=== PATIENT | female | born 1950 | race Caucasian/White ===

== ENCOUNTER 2020-10-04 14:50 | Outpatient (CLI) | payer MEDICARE, OTHER, SELFPAY ==
--- NOTE | ~2020-10-04 | MM_ITS ---
EXAMINATION: MM screening ana BI w sameera HISTORY: Screening mammogram TECHNIQUE: Craniocaudal and mediolateral oblique 3-D tomosynthesis images were obtained and synthetic 2-D images were generated. CAD analysis was submitted and interpreted. COMPARISON: 04/15/2014 BREAST PARENCHYMAL COMPOSITION: There are scattered areas of fibroglandular density. FINDINGS: A stable mass of the inner right breast is considered benign given the lack of interval deb nge. There is no evidence of suspicious mass, calcification, or architectural distortion to suggest m alignancy in either breast. There has been no suspicious interval change. IMPRESSION: 1. No mammographic evidence of malignancy. 2. Recommend routine screening mammography in one year. BI-RADS Category 2: Benign finding(s). Reviewed, dictated and finalized at location A.
--- NOTE | ~2020-10-04 | DEXA_ITS ---
Bone Density Report Name: Rakel Pavon Age: 70 Sex: Female Ethnicity: White Date of : 1950 Indication: postmenopausal; height loss; hysterectomy; Referring Provider: Stacia Pinto Study: Bone densitometry was performed. Exam Date: October 04, 2020 Accession number: [id number] Bone Density: Region BMD T-score Z-score Classification AP Spine (L1-L4) 0.896 -1.4 0.8 Osteopenia Femoral Neck (Left) 0.797 -0.5 1.3 Normal Total Hip (Left) 0.910 -0.3 1.3 Normal Total Hip Bilateral Avg 0.919 -0.2 1.4 Normal Femoral Neck (Right) 0.848 0.0 1.8 Normal Total Hip (Right) 0.926 -0.1 1.4 Normal World Health Organization criteria for BMD impression classify patients as: Normal (T-score at or above -1.0), Osteopenia (T-score between -1.0 and -2.5), or Osteoporosis (T-score at or below -2.5). 10-year Fracture Risk(1): Major Osteoporotic Fracture 7.7% Hip Fracture 0.6% Reported Risk Factors: [place] (), Neck BMD=0.797, BMI=28.7 (1) FRAX(R) Version 3.08. Fracture probability calculated for an untreated patient. Fracture probability may be lower if the patient has received treatment. Clinical Information Provided by Patient: Has used the following medications: Vitamin D, Calcium Has the following medical conditions: Hysterectomy Patient maximum height was 65 Menopause Age: 55 Drinks caffeinated beverages Onset of menses at age 17 Number of children 2 Impression: The patient has low bone mass, based on the Total Spine T-score. The patient has an estimated ten-year risk of hip fracture of 0.6% and an estimated ten-year risk of major fracture of 7.7%, based on the WHO FRAX algorithm. Discussion: BONE DENSITY IS LOW AT ONE OR MORE SKELETAL SITES. This patient's lowest T-score is low at one or more skeletal sites. It meets the World Health Organization's (WHO) criteria for ?low bone mass? (T-score between -1.0 and -2.5). The patient's 10-year risk of fracture as calculated by FRAX is less than the threshold where pharmacological therapy is recommended by the National Osteoporosis Foundation (NOF). However, all treatment decisions require clinical judgment and consideration of individual patient factors, including patient preferences, comorbidities, previous drug use, risk factors not captured in the FRAX model (e.g., frailty, falls, vitamin D deficiency, increased bone turnover, interval significant decline in bone density) and possible under or overestimation of fracture risk by FRAX. The patient should follow a healthful lifestyle (good nutrition with adequate calcium and vitamin D, and appropriate weight-bearing exercise). Follow-Up: Consider repeating this study in 2 to 3 years to reassess this patient's status, or sooner if there is some new clinical indication. Reported by: [facility] on 10/04/2020 3:1
== END 2020-10-04 14:51 | disposition home or self-care (01) ==
LOC: ANHIMG 14:56
PROVIDERS: PCP Family Medicine; Visit Provider Family Medicine
DX: Z12.31 Encounter for screening mammogram for malignant neoplasm of breast (principal); Z78.0 Asymptomatic menopausal state; M85.88 Other specified disorders of bone density and structure, other site
CPT/HCPCS: 77063; 77067; 77080

== ENCOUNTER 2022-03-29 14:33 | Outpatient (CLI) | payer MEDICARE, SELFPAY ==
[2022-03-29 19:11] LABS: Alanine Aminotransferase 31 U/L (6-35); Albumin Level 5.1 g/dL (3.5-5.1); Alkaline Phosphatase 75 U/L (38-126); Anion Gap 14 mmol/L (8-16); Aspartate Amino Transferase 43 U/L (14-36); Bilirubin,Total 0.7 mg/dL (0.2-1.3); Blood Urea Nitrogen 22 mg/dL (7-17); Calcium 9.9 mg/dL (8.4-10.2); Carbon Dioxide 25 mmol/L (22-30); Chloride 92 mmol/L (98-107); Cholesterol 159 mg/dL (0-200); Estimated Glomerular Filt Rate > 60; Glucose 111 mg/dL (65-110); HDL Direct 57 mg/dL; Potassium 4.5 mmol/L (3.4-5.0); Sodium 131 mmol/L (137-145); Triglycerides 70 mg/dL (<150)
[2022-03-29 19:22] LABS: LDL Cholesterol Direct 75 mg/dL
[2022-03-29 20:16] LABS: Vitamin D 25 Hydroxy > 126.0 ng/mL
== END 2022-03-29 14:34 | disposition home or self-care (01) ==
LOC: ANHGOSHLAB 14:35
PROVIDERS: PCP Family Medicine; Visit Provider Nurse Practitioner Family
DX: E55.9 Vitamin D deficiency, unspecified (principal); E03.9 Hypothyroidism, unspecified; I10 Essential (primary) hypertension
CPT/HCPCS: 36415; 80053; 80061; 82306; 84443

== ENCOUNTER 2022-04-01 12:29 | Outpatient (CLI) | payer MEDICARE, SELFPAY ==
--- NOTE | 2022-04-01 12:38 | ECHO_ITS ---
Patient Info Name: Rakel Pavon Age: 71 years : 1950 Gender: Female Ht: 65 in Wt: 150 lbs BSA: 1.78 m2 HR: 66 bpm BP: 140 / 74 mmHg Heart Rhythm: Sinus Rhythm Technical Quality: Fair Exam Date: 04/01/2022 12:55 PM Exam Location: [facility] Patient Status: Outpatient Admit Date: 04/01/2022 Staff Ordering Physician: Keeley Flowers NP Optical Mechanic: Park Beaver RDCS Attending Provider: Keeley Flowers NP Referring Physician: Kristie MARROQUIN; Exam Type: CA echo doppler color flow Study Info Indications R01.1 - Cardiac murmur, unspecified Complete two-dimensional, color flow and Doppler transthoracic echocardiogram is performed. Summary 1. Complete two-dimensional, color flow and Doppler transthoracic echocardiogram is performed. 2. Left ventricular chamber dimension is normal. 3. Left ventricular systolic function is hyperdynamic, estimated at >70%. 4. The left ventricular diastolic function is grade I diastolic dysfunction. 5. E/e' 13 is mildly elevated. 6. There is trace tricuspid valve regurgitation. 7. No pulmonary hypertension, estimated pulmonary arterial systolic pressure is 23 mmHg. Left Ventricle E/e' 13 is mildly elevated. Left ventricular chamber dimension is normal. Left ventricular systolic function is hyperdynamic, estimated at >70%. The left ventricular diastolic function is grade I diastolic dysfunction. Right Ventricle Right ventricular chamber dimension is normal. Right ventricular systolic function is normal. Left Atria Left atrial chamber dimension is normal. Right Atria Right atrial chamber dimension is normal. Aortic Valve The aortic valve is trileaflet. There is no aortic valve stenosis. There is no aortic valve regurgitation. Pulmonic Valve There is no pulmonic regurgitation. Mitral Valve There is no mitral valve stenosis. There is no mitral valve regurgitation. Tricuspid Valve There is trace tricuspid valve regurgitation. No pulmonary hypertension, estimated pulmonary arterial systolic pressure is 23 mmHg. Pericardium/Pleural There is no pericardial effusion. Inferior Vena Cava Normal inferior vena cava with >50% collapse upon inspiration consistent with normal right atrial pressure, 5 mmHg. Aorta The aortic root size at the sinus of Valsalva is normal. Left Ventricular Outflow Tract Name Value Normal LVOT 2D LVOT Diameter 2.0 cm LVOT Doppler LVOT Peak Gradient 8 mmHg LVOT Mean Gradient 4 mmHg LVOT VTI 26 cm LVOT VTI/AV VTI Ratio 0.7 LVOT Stroke Volume 79 ml LVOT CO 4.4 l/min LVOT CI 2.5 l/min/m2 Pulmonic Valve Name Value Normal RVOT Doppler RVOT
== END 2022-04-01 12:30 | disposition home or self-care (01) ==
LOC: ANHCARD 12:31
PROVIDERS: PCP Family Medicine; Visit Provider Nurse Practitioner Family
DX: R01.1 Cardiac murmur, unspecified (principal)
CPT/HCPCS: 93306

== ENCOUNTER 2022-04-05 14:11 | Emergency (ER) | payer MEDICARE, SELFPAY ==
--- NOTE | ~2022-04-05 | CT_ITS ---
EXAMINATION: CT brain wo con DATE: 04/05/2022 16:17 INDICATION: Altered mental status. TECHNIQUE: Computed tomography (CT) of the head was performed without intravenous contrast. The mA wa s adjusted according to patient size. Iterative reconstruction technique was employed. The dose-lengt h product was 605.33 mGy-cm. COMPARISON: None FINDINGS: There is no intracranial hemorrhage, acute infarction, or abnormal intracranial mass lesion . There are scattered areas of low attenuation in the cerebral white matter, which is within normal l imits for the patient's age. The ventricles are normal in size. The orbits are normal. There are old fracture deformities of the nasal bones and nasal processes of maxilla. There is mild mucosal thicken ing in the ethmoid sinuses. The mastoid air cells are normal. IMPRESSION: 1. Normal aging brain. Reviewed, dictated and finalized at location A. IMPRESSION: 1. Normal aging brain.
--- NOTE | ~2022-04-05 | XR_ITS ---
EXAMINATION: XR chest 2V 04/05/2022 16:33 INDICATION: Altered mental status PROCEDURE: 2 view chest COMPARISON: No prior studies for comparison. FINDINGS: The lungs are clear. The cardiomediastinal silhouette is within normal limits. There are no pleural effusions. There is no pneumothorax suspected. IMPRESSION: 1: NO ACUTE CARDIOPULMONARY DISEASE. Reviewed, dictated and finalized at location B.
[2022-04-05 14:14] VITALS: BP 159/74; PULSE 86; RESP 18; TEMP 36.6; O2SAT 99
--- NOTE | 2022-04-05 16:12 | PC.NURSE ---
Went into pt room for EKG, pt refused EKG due to already having an EKG at another hospital and in the ambulance. RN and MD aware of situation.
--- NOTE | 2022-04-05 17:10 | ED.GENADULT ---
HPI - General Adult General Chief complaint: Extremity Problem,Nontraumatic Stated complaint: numbness to feet, rash Time Seen by Provider: 04/05/22 15:18 Source: patient, family and RN notes reviewed Mode of arrival: ambulatory Limitations: other (change in personality) History of Present Illness HPI narrative: This is a 71 year old female with history of hypertension who presents for evaluation of numbness to top for right foot. Patient is extremely anxious . She states she noticed numbness to top of her foot today. She denies weakness or pain. Her son is at bedside and he states patient has been unable sleep for 1 month. She has been having issues with anxiousness, decreased appetite, insomnia, decreased activity. She is also more worried about things such as spots on her body. He states something seems different. He denies any new stressors other than patient's dog 2 months ago. Patient states she is not depressed or sad. She denies abdominal pain, nausea, vomiting, chest pain or shortness of breath. She has been seeing [facility] for Dr. Greer for her symptoms. They were going to start patient on citalopram but patient did not want to initially. PAtient was started on trazodone but it has not improved her insomnia. Her son gave patient an ambien yesterday and she was able to sleep. Related Data Home Medications Medication Instructions Recorded Confirmed multivit with 1 tablet PO DAILY 03/02/20 03/29/22 ytqymkos-rcog-JM-lutein 8 mg iron-400 mcg-300 mcg tablet (Centrum Silver Women) ubidecarenone-omega 3-vit E 50 cap PO 03/02/20 03/29/22 mg-300 (180-120)mg-30 unit capsule ascorbate calcium (vitamin C) 500 500 mg PO DAILY 08/27/21 03/29/22 mg tablet Allergies Allergy/AdvReac Type Severity Reaction Status Date / Time No Known Allergies Allergy Verified 03/29/22 13:18 Review of Systems Review of Systems: All systems reviewed & are unremarkable except as noted in HPI and below Constitutional: Constitutional: Denies chills and Reports fatigue ENT: Denies nasal congestion and Denies sore throat Cardiovascular: Cardiovascular: Denies slow heart rate Respiratory: Respiratory: Denies chest congestion, Denies cough and Denies dyspnea Gastrointestinal: Gastrointestinal: Denies abdominal pain, Denies nausea and Denies vomiting Neurologic: Denies syncope, Denies headache(s) and Denies focal weakness Psychiatric: Psychiatric: Reports anxiety PMFSH Past Medical History Medical History (Updated 04/05/22 @ 19:20 by Callie Wu MD) Anxiety disorder Current moderate episode of major depressive disorder Dyslipidemia Essential (primary) hypertension Osteopenia of spine Surgical History Surgical History History of lumbosacral spine surgery 1990 and 1997 History of partial hysterectomy 1992 Family History Family History Father Family history of cardiovascular disease, Onset Age: 77 Social History Social History Social History: . lives alone. 3 children lives outside of home. Smoking status: Never smoker Second hand tobacco smoke exposure: No Alcohol intake: never Substance use: never Substance use type: does not use Gender identity (if verbalized by the patient): Female Sexual Orientation (if Verbalized by the Patient): Straight or Heterosexual Agree to blood products: Yes Course Reevaluation(s) Reevaluation #1: PAtient's labs show chronic hyponatremia. Patient is not eating as much. I Discussed with son to encourage patient to eat meals and drink shakes. Patient seems to be here more for difficulty sleeping. I spoke with Dr. Pinto who recommends starting patient on ambien and have patient to call the office. Date: 04/05/22 Time: 19:18 Vital Signs Vital signs
[2022-04-05 17:12] LABS: Basophils Absolute Auto 0.1 K/mm3 (0.0-0.1); Basophils Percent Auto 0.6 % (0.2-1.2); Hematocrit 42.9 % (37.0-47.0); Hemoglobin 14.9 g/dL (12.0-15.0); Immature Granulocyte Absolute 0.06 K/mm3 (0.00-0.031); Immature Granulocyte Percent A 0.5 % (0-0.5); Lymphocytes Absolute Auto 1.31 K/mm3 (0.9-3.2); Lymphocytes Percent Auto 11.8 % (18.3-44.2); Mean Corpuscular HGB Conc 34.7 g/dl (32-36); Mean Corpuscular Hemoglobin 30.8 pg (26-34); Mean Corpuscular Volume 88.6 fl (80-100); Mean Platelet Volume 10.1 fl (7.4-10.4); Monocytes Absolute Auto 0.9 K/mm3 (0.1-0.6); Monocytes Percent Auto 7.9 % (2.6-8.5); Neutrophils Absolute Auto 8.8 K/mm3 (1.3-6.7); Neutrophils Percent Auto 79.2 % (45.5-73.1); Platelet Count Result 190 k/mm3 (150-375); Red Blood Count 4.84 M/mm3 (4.2-5.4); Red Cell Distribution Width 12.5 % (11.5-14.5); White Blood Count 11.1 K/mm3 (4.5-10.0)
[2022-04-05 17:15] LABS: Appearance Urine Clear (Clear); Bilirubin Urine Negative (Negative); Blood Urine 1+ (Negative); Color Urine Light Yellow (Yellow); Glucose Urine UA Negative (Negative); Ketones Urine 2+ mg/dL (Negative); Leukocyte Esterase Ur 1+ LEU/UL (Negative); Nitrate Urine Negative (Negative); Protein Urine Negative (Negative); Specific Grav Ur <= 1.005 (1.001-1.035); Urobilinogen Urine 0.2 mg/dL (<2.0); pH Urine 5.5 (5.0-9.0)
[2022-04-05 17:22] LABS: Add Urine Microscopic? YES; Bacteria Urine Trace /hpf; Mucus Urine Rare /lpf; RBC Urine 0-2 /hpf (0-2); Squamous Epithelial Cell Urine Rare /hpf (Few)
[2022-04-05 17:27] LABS: Alanine Aminotransferase 29 U/L (6-35); Albumin Level 5.3 g/dL (3.5-5.1); Alkaline Phosphatase 79 U/L (38-126); Anion Gap 15 mmol/L (8-16); Aspartate Amino Transferase 32 U/L (14-36); Bilirubin,Total 0.8 mg/dL (0.2-1.3); Blood Urea Nitrogen 18 mg/dL (7-17); Calcium 9.9 mg/dL (8.4-10.2); Carbon Dioxide 24 mmol/L (22-30); Chloride 92 mmol/L (98-107); Estimated CRCL calculation 51 ml/min; Estimated Glomerular Filt Rate > 60; Glucose 109 mg/dL (65-110); Magnesium 2.2 mg/dL (1.6-2.3); Potassium 4.1 mmol/L (3.4-5.0); Sodium 131 mmol/L (137-145)
[2022-04-05 17:48] LABS: Amphetamine Screen Urine Negative (Negative); Barbiturate Screen Urine Negative (Negative); Benzodiazepines Screen Urine Negative (Negative); Cannabinoid Screen Urine Negative (Negative); Cocaine Screen Urine Negative (Negative); Methadone Screen Urine Negative (Negative); Opiate Screen Urine Negative (Negative); Phencyclidine Screen Urine Negative (Negative)
--- NOTE | 2022-04-05 18:03 | PC.NURSE ---
Patient refused EKG. EKG not done.
--- NOTE | 2022-04-05 19:22 | PC.NURSE ---
Patient care report given to TIFFANIE Valdovinos. All questions answered at this time and care transferred to TIFFANIE Valdovinos.
[2022-04-05 19:31] VITALS: BP 175/93; PULSE 81; RESP 18; O2SAT 99
== END 2022-04-05 19:36 | disposition home or self-care (01) ==
PROVIDERS: Emergency Provider General Practice; PCP Family Medicine
DX: G47.00 Insomnia, unspecified (principal); E87.1 Hypo-osmolality and hyponatremia; R20.0 Anesthesia of skin; I10 Essential (primary) hypertension; E78.5 Hyperlipidemia, unspecified; Z79.899 Other long term (current) drug therapy
CPT/HCPCS: 36415; 70450; 71046; 80053; 80307; 81001; 83735; 84443; 85025; 99284

== ENCOUNTER 2022-04-15 11:10 | Outpatient (CLI) | payer MEDICARE, SELFPAY ==
[2022-04-15 19:02] LABS: Basophils Absolute Auto 0.1 K/mm3 (0.0-0.1); Basophils Percent Auto 0.8 % (0.2-1.2); Eosinophils Percent Auto 0.3 % (0-4.4); Hematocrit 43.3 % (37.0-47.0); Hemoglobin 14.5 g/dL (12.0-15.0); Immature Granulocyte Absolute 0.09 K/mm3 (0.00-0.031); Immature Granulocyte Percent A 0.9 % (0-0.5); Lymphocytes Absolute Auto 1.72 K/mm3 (0.9-3.2); Lymphocytes Percent Auto 16.8 % (18.3-44.2); Mean Corpuscular HGB Conc 33.5 g/dl (32-36); Mean Corpuscular Volume 92.5 fl (80-100); Mean Platelet Volume 10.1 fl (7.4-10.4); Monocytes Percent Auto 9.5 % (2.6-8.5); Neutrophils Absolute Auto 7.4 K/mm3 (1.3-6.7); Neutrophils Percent Auto 71.7 % (45.5-73.1); Platelet Count Result 278 k/mm3 (150-375); Red Blood Count 4.68 M/mm3 (4.2-5.4); Red Cell Distribution Width 13.1 % (11.5-14.5); White Blood Count 10.2 K/mm3 (4.5-10.0)
[2022-04-15 20:18] LABS: Alanine Aminotransferase 28 U/L (6-35); Albumin Level 5.1 g/dL (3.5-5.1); Alkaline Phosphatase 78 U/L (38-126); Anion Gap 16 mmol/L (8-16); Aspartate Amino Transferase 28 U/L (14-36); Bilirubin,Total 0.6 mg/dL (0.2-1.3); Blood Urea Nitrogen 17 mg/dL (7-17); Calcium 10.7 mg/dL (8.4-10.2); Carbon Dioxide 23 mmol/L (22-30); Chloride 94 mmol/L (98-107); Estimated Glomerular Filt Rate 44; Glucose 134 mg/dL (65-110); Potassium 4.3 mmol/L (3.4-5.0); Sodium 133 mmol/L (137-145)
== END 2022-04-15 11:11 | disposition home or self-care (01) ==
LOC: ANHGOSHLAB 11:12
PROVIDERS: PCP Family Medicine; Visit Provider Family Medicine
DX: E87.1 Hypo-osmolality and hyponatremia (principal); I10 Essential (primary) hypertension
CPT/HCPCS: 36415; 80053; 85025

== ENCOUNTER 2022-04-25 12:36 | Outpatient (CLI) | payer MEDICARE, SELFPAY ==
[2022-04-25 20:04] LABS: Basophils Absolute Auto 0.1 K/mm3 (0.0-0.1); Basophils Percent Auto 0.9 % (0.2-1.2); Eosinophils Absolute Auto 0.1 K/mm3 (0-0.3); Eosinophils Percent Auto 0.6 % (0-4.4); Hematocrit 41.6 % (37.0-47.0); Hemoglobin 14.4 g/dL (12.0-15.0); Immature Granulocyte Absolute 0.11 K/mm3 (0.00-0.031); Immature Granulocyte Percent A 0.9 % (0-0.5); Lymphocytes Absolute Auto 1.88 K/mm3 (0.9-3.2); Lymphocytes Percent Auto 15.1 % (18.3-44.2); Mean Corpuscular HGB Conc 34.6 g/dl (32-36); Mean Corpuscular Hemoglobin 30.5 pg (26-34); Mean Corpuscular Volume 88.1 fl (80-100); Mean Platelet Volume 11.7 fl (7.4-10.4); Monocytes Absolute Auto 1.1 K/mm3 (0.1-0.6); Monocytes Percent Auto 8.7 % (2.6-8.5); Neutrophils Absolute Auto 9.2 K/mm3 (1.3-6.7); Neutrophils Percent Auto 73.8 % (45.5-73.1); Platelet Count Result 138 k/mm3 (150-375); Red Blood Count 4.72 M/mm3 (4.2-5.4); Red Cell Distribution Width 12.8 % (11.5-14.5); White Blood Count 12.4 K/mm3 (4.5-10.0)
[2022-04-25 20:14] LABS: Alanine Aminotransferase 42 U/L (6-35); Albumin Level 4.9 g/dL (3.5-5.1); Alkaline Phosphatase 77 U/L (38-126); Anion Gap 18 mmol/L (8-16); Aspartate Amino Transferase 33 U/L (14-36); Bilirubin,Total 0.7 mg/dL (0.2-1.3); Blood Urea Nitrogen 22 mg/dL (7-17); Calcium 10.1 mg/dL (8.4-10.2); Carbon Dioxide 22 mmol/L (22-30); Chloride 95 mmol/L (98-107); Estimated Glomerular Filt Rate 44; Glucose 128 mg/dL (65-110); Potassium 4.4 mmol/L (3.4-5.0); Sodium 135 mmol/L (137-145)
[2022-04-25 21:00] LABS: Hemoglobin A1C 5.5 % (<5.7)
== END 2022-04-25 12:37 | disposition home or self-care (01) ==
LOC: ANHGOSHLAB 12:38
PROVIDERS: PCP Family Medicine; Visit Provider Family Medicine
DX: R73.9 Hyperglycemia, unspecified (principal); I10 Essential (primary) hypertension; E87.1 Hypo-osmolality and hyponatremia
CPT/HCPCS: 36415; 80053; 83036; 85025

== ENCOUNTER 2022-05-16 16:04 | Outpatient (CLI) | payer MEDICARE, SELFPAY ==
[2022-05-16 19:27] LABS: Basophils Absolute Auto 0.1 K/mm3 (0.0-0.1); Basophils Percent Auto 0.9 % (0.2-1.2); Eosinophils Percent Auto 0.5 % (0-4.4); Hematocrit 40.3 % (37.0-47.0); Hemoglobin 13.7 g/dL (12.0-15.0); Immature Granulocyte Absolute 0.03 K/mm3 (0.00-0.031); Immature Granulocyte Percent A 0.4 % (0-0.5); Lymphocytes Percent Auto 21.3 % (18.3-44.2); Mean Corpuscular Hemoglobin 31.1 pg (26-34); Mean Corpuscular Volume 91.4 fl (80-100); Mean Platelet Volume 11.3 fl (7.4-10.4); Monocytes Absolute Auto 0.9 K/mm3 (0.1-0.6); Monocytes Percent Auto 11.7 % (2.6-8.5); Neutrophils Absolute Auto 5.2 K/mm3 (1.3-6.7); Neutrophils Percent Auto 65.2 % (45.5-73.1); Platelet Count Result 153 k/mm3 (150-375); Red Blood Count 4.41 M/mm3 (4.2-5.4); Red Cell Distribution Width 13.1 % (11.5-14.5)
[2022-05-16 19:52] LABS: Alanine Aminotransferase 37 U/L (6-35); Albumin Level 4.7 g/dL (3.5-5.1); Alkaline Phosphatase 76 U/L (38-126); Anion Gap 10 mmol/L (8-16); Aspartate Amino Transferase 29 U/L (14-36); Bilirubin,Total 0.5 mg/dL (0.2-1.3); Blood Urea Nitrogen 11 mg/dL (7-17); Calcium 9.4 mg/dL (8.4-10.2); Carbon Dioxide 27 mmol/L (22-30); Chloride 96 mmol/L (98-107); Estimated Glomerular Filt Rate 55; Glucose 113 mg/dL (65-110); Potassium 4.4 mmol/L (3.4-5.0); Sodium 133 mmol/L (137-145)
== END 2022-05-16 16:05 | disposition home or self-care (01) ==
LOC: ANHGOSHLAB 16:07
PROVIDERS: PCP Family Medicine; Visit Provider Family Medicine
DX: E87.1 Hypo-osmolality and hyponatremia (principal); F41.8 Other specified anxiety disorders; I10 Essential (primary) hypertension
CPT/HCPCS: 36415; 80053; 85025

== ENCOUNTER 2023-05-06 17:25 | Outpatient (CLI) | payer MEDICARE, SELFPAY ==
[2023-05-06 17:47] LABS: Basophils Absolute Auto 0.1 K/mm3 (0.0-0.1); Eosinophils Absolute Auto 0.1 K/mm3 (0-0.3); Eosinophils Percent Auto 1.1 % (0-4.4); Hematocrit 44.1 % (37.0-47.0); Hemoglobin 14.3 g/dL (12.0-15.0); Immature Granulocyte Absolute 0.05 K/mm3 (0.00-0.031); Immature Granulocyte Percent A 0.6 % (0-0.5); Lymphocytes Absolute Auto 1.15 K/mm3 (0.9-3.2); Mean Corpuscular HGB Conc 32.4 g/dl (32-36); Mean Corpuscular Hemoglobin 29.9 pg (26-34); Mean Corpuscular Volume 92.3 fl (80-100); Mean Platelet Volume 10.1 fl (7.4-10.4); Monocytes Absolute Auto 0.7 K/mm3 (0.1-0.6); Monocytes Percent Auto 8.8 % (2.6-8.5); Neutrophils Absolute Auto 6.1 K/mm3 (1.3-6.7); Neutrophils Percent Auto 74.5 % (45.5-73.1); Platelet Count Result 173 k/mm3 (150-375); Red Blood Count 4.78 M/mm3 (4.2-5.4); Red Cell Distribution Width 12.2 % (11.5-14.5); White Blood Count 8.2 K/mm3 (4.5-10.0)
[2023-05-06 17:59] LABS: Hemoglobin A1C 5.1 % (<5.7)
[2023-05-06 18:00] LABS: Alanine Aminotransferase 21 U/L (6-35); Albumin Level 4.9 g/dL (3.5-5.1); Alkaline Phosphatase 93 U/L (38-126); Anion Gap 8 mmol/L (8-16); Aspartate Amino Transferase 29 U/L (14-36); Bilirubin,Total 0.8 mg/dL (0.2-1.3); Blood Urea Nitrogen 20 mg/dL (7-17); Calcium 9.4 mg/dL (8.4-10.2); Carbon Dioxide 29 mmol/L (22-30); Chloride 101 mmol/L (98-107); Cholesterol 231 mg/dL (0-200); Estimated Glomerular Filt Rate > 60; Glucose 105 mg/dL (65-110); HDL Direct 86 mg/dL; Potassium 4.1 mmol/L (3.4-5.0); Sodium 138 mmol/L (137-145); Triglycerides 60 mg/dL (<150)
[2023-05-06 18:11] LABS: LDL Cholesterol Direct 104 mg/dL
== END 2023-05-06 17:26 | disposition home or self-care (01) ==
LOC: ANHLAB 17:27
PROVIDERS: PCP Family Medicine; Visit Provider Family Medicine
DX: E55.9 Vitamin D deficiency, unspecified (principal); F41.8 Other specified anxiety disorders; E53.8 Deficiency of other specified B group vitamins; E78.5 Hyperlipidemia, unspecified; R73.9 Hyperglycemia, unspecified; I10 Essential (primary) hypertension
CPT/HCPCS: 36415; 80053; 80061; 82306; 82607; 83036; 84443; 85025

== ENCOUNTER 2023-10-21 15:00 | Outpatient (CLI) | payer MEDICARE, SELFPAY ==
--- NOTE | ~2023-10-21 | DEXA_ITS ---
Bone Density Report Name: LUCIANA MCCARTY Age: 73 Sex: Female Ethnicity: White Date of : 1950 Indication: postmenopausal; screening for osteoporosis; height loss; hysterectomy; Referring Provider: MARY SHIPLEY Study: Bone densitometry was performed. Exam Date: October 21, 2023 Accession number: [id number] Bone Density: Region BMD T-score Z-score Classification AP Spine(L1-L4) 0.861 -1.7 0.6 Osteopenia Femoral Neck (Left) 0.729 -1.1 0.9 Osteopenia Total Hip (Left) 0.820 -1.0 0.7 Normal Femoral Neck (Right) 0.802 -0.4 1.6 Normal Total Hip (Right) 0.908 -0.3 1.4 Normal Total Hip Mean 0.864 -0.7 1.1 Normal World Health Organization criteria for BMD impression classify patients as: Normal (T-score at or above -1.0), Osteopenia (T-score between -1.0 and -2.5), or Osteoporosis (T-score at or below -2.5). 10-year Fracture Risk(1): Major Osteoporotic Fracture 9.6% Hip Fracture 1.3% Reported Risk Factors: [place] (), Neck BMD=0.729, BMI=28.7 (1) FRAX(R) Version 3.08. Fracture probability calculated for an untreated patient. Fracture probability may be lower if the patient has received treatment. Clinical Information Provided by Patient: Has used the following medications: Vitamin D, Calcium Has the following medical conditions: Hysterectomy Patient maximum height was 65 Menopause Age: 55 No regular weight bearing exercise Drinks caffeinated beverages Onset of menses at age 15 Number of children 2 Impression: The patient has low bone mass, based on the Total Spine T-score. The patient has an estimated ten-year risk of hip fracture of 1.3% and an estimated ten-year risk of major fracture of 9.6%, based on the WHO FRAX algorithm. Discussion: BONE DENSITY IS LOW AT ONE OR MORE SKELETAL SITES. This patient's lowest T-score is low at one or more skeletal sites. It meets the World Health Organization's (WHO) criteria for ?low bone mass? (T-score between -1.0 and -2.5). The patient's 10-year risk of fracture as calculated by FRAX is less than the threshold where pharmacological therapy is recommended by the National Osteoporosis Foundation (NOF). However, all treatment decisions require clinical judgment and consideration of individual patient factors, including patient preferences, comorbidities, previous drug use, risk factors not captured in the FRAX model (e.g., frailty, falls, vitamin D deficiency, increased bone turnover, interval significant decline in bone density) and possible under or overestimation of fracture risk by FRAX. The patient should follow a healthful lifestyle (good nutrition with adequate calcium and vitamin D, and appropriate weight-bearing exercise). Follow-Up: Consider repeating this study in 2 to 3 years to reassess this patient's status, or danielle
--- NOTE | ~2023-10-21 | MM_ITS ---
EXAMINATION: MM screening ana BI w sameera HISTORY: Screening TECHNIQUE: Craniocaudal and mediolateral oblique 3-D tomosynthesis images were obtained and synthetic 2-D images were generated. CAD analysis was submitted and interpreted. COMPARISON: Comparison to multiple prior studies sequentially, with oldest reviewed study dated 04/06. BREAST PARENCHYMAL COMPOSITION: Not dense: There are scattered areas of fibroglandular density. FINDINGS: There is no evidence of suspicious mass, calcification, or architectural distortion to sugg est malignancy in either breast. There has been no suspicious interval change. IMPRESSION: 1. No mammographic evidence of malignancy. 2. Recommend routine screening mammography in one year. BI-RADS Category 1: Negative Reviewed, dictated and finalized at location B.
== END 2023-10-21 15:01 | disposition home or self-care (01) ==
PROVIDERS: PCP Family Medicine; Visit Provider Family Medicine
DX: Z12.31 Encounter for screening mammogram for malignant neoplasm of breast (principal); M85.89 Other specified disorders of bone density and structure, multiple sites; R29.890 Loss of height; Z90.710 Acquired absence of both cervix and uterus; Z78.0 Asymptomatic menopausal state
CPT/HCPCS: 77063; 77067; 77080

== ENCOUNTER 2024-12-22 13:03 | Outpatient (CLI) | payer MEDICARE, SELFPAY ==
--- OUTSIDE RECORDS SUMMARY | 2024-12-22 14:30 | XMS_ITS | Data Portability ---
Author Organization [place] [facility], Main Office Address [address] [place] [address] Care Team Providers Care Fluid Power Mechanic Name Role Phone KARINA SHIPLEY Primary Care Provider KARINA SHIPLEY Referring Provider Assessment Encounter Date Assessment Date Assessment LastModified by Organization Details LastModified Time 08/06/2023 08/06/2023 A 73-year-old female presents for evaluation of her right shoulder. She was walking 80 lb dog when it jerked the lesion through her to the ground. This was on 08/01/2023. She reports she dislocated her shoulder, and required reduction in the emergency department. She is using a sling, taking naproxen for pain. She is right-hand dominant. She denies previous injury to the shoulder. She currently rates her pain as 3/10. Is Review of systems per patient questionnaire Physical exam: He has diffuse tenderness to palpation around the shoulder. Tenderness over the AC joint. Range of motion 130/30/lower lumbar. She has weakness with resisted external rotation elevation, positive ER lag, positive Edward, positive Neer and Cespedes. Pain with AC loading. Previous x-rays pre and post reduction were reviewed, demonstrating anterior shoulder dislocation and subsequent reduction. She had a shoulder dislocation with suspected acute rotator cuff tear. We will send her for MRI to evaluate the rotator cuff. In the meantime, we will send her to physical therapy so she can work on her shoulder. We will see her back after she obtains his scan. Not available 08/06/2023 20:58:57 08/27/2023 08/27/2023 73-year-old jaquan coles presents for follow-up of her right shoulder. She has an acute injury from December when she fell, and then had rotator cuff symptoms of pain and weakness. We sent her for MRI to evaluate the cuff. Overall she is feeling better, currently rates her pain as 5/10. She has been a little more mobile with shoulder, but still has weakness. She has been ordered physical therapy but has not started with that yet. She still has soreness around the shoulder. Range of motion 130/ 30/lower lumbar. She has good strength with internal external rotation, 3/5 strength with elevation, positive Edward's. Positive drop-arm. Positive Neer and Cespedes. Neurovascularly intact. MRI was reviewed, demonstrating a full-thickness tear of the supraspinatus Treatment options were discussed in detail. At this point, we will continue conservative management, with a course of physical therapy anti-inflammatorie s. She should start her PT that was already ordered, and we will renew her naproxen. She may follow up in 2 months after a course treatment, worse as needed. At that point, she does not have improvement, the next step would be to consider a cortisone injection. She is in agreement with the plan. Not available 08/27/2023 21:05:51 10/29/2023 10/29/2023 73-year-old jaquan coles presents for follow-up of her right shoulder. She has a irreparable rotator cuff tear with high-riding humeral head. We sent her to a course of physical therapy which she finished. She feels a lot better and has significantly better mobility. She currently rates her pain as 1/10. Range of motion 140/20/buttocks. She is able to elevate her arm and touched up of her head without significant difficulty. She does have weakness with resisted elevation. We will continue conservative management. She should continue to do the physical therapy exercises and take anti-inflammatorie s as needed. We will have her follow-up as needed, the next steps would be to consider cortisone injection, or ultimately she may be a good candidate for balloon arthroplasty. Not available 10/29/2023 17:08:10 Plan of Treatment Reminders Order Date Submit Date Provider Last Modified By Organization Details Last Modified Time Details Appointments None recorded. Lab None recorded. Referral physical therapist referral - Please contact pt to schedule for R shoulder. Thanks 2023 024 [facility] [place], [address], [place], [address], 4 17:19:06 Procedures None recorded. Surgeries None recorded. Imaging MRI, shoulder, w/o contrast - Please contact pt to schedule for R shoulder. thanks 2023 024 [facility] ([facility]), [address] [place], [address], 4 13:29:29 Medication Orders naproxen 500 mg tablet [address] [facility], [address] [facility], [place], [address], 4 20:48:30 Patient TargetsNo targets recorded. Patient InstructionsNo instructions recorded. Reason for Referral Physical Therapist Referral for Pain of right shoulder joint R shoulder Please contact pt to schedule for R shoulder. Thanks Referring Physician: Mumtaz Sargent, Orthopedic Surgery, Encounter Date: 08/06/2023 Results Created Date Observation Date Name Description Value Unit Range Abnormal Flag Note LastModifiedBy Organization Detail LastModifiedTime 08/12/1908/12/2023 MRI, shoul james, w/o contr ast No observ ation record ed. [email or web address] [place] [address] [address] [place], [address], 08/15/2023 10:09:30 10/10/19 24 08/01/2023 XR, shoul james, 2 or more view No observ ation record ed. [email or web address] Not Available 11/2023 14:53:53 Result Notes None recorded. Problems Name Problem SNOMED Code Status Onset Date Resolution Date Notes Provider Name and Address Organization Details Recorded Time Benign essential hypertensi on 1274601 Active Not Available [facility] 4 11:40:48 Anxiety disorder 944381926 Active 2017 Not Available [facility] 4 11:40:48 Cervical radiculopa thy 58685946 Active Not Available [facility] 4 11:40:48 Polymyalgi a rheumatica 51941780 Active Not Available [facility] 4 11:40:48 Herniation of nucleus pulposus 79935567 Active Not Available [facility] 4 11:40:48 Pain of right shoulder joint 5277001174363 9100 Active 2023 Not Available [facility] 4 11:40:48 Notes:Some problems listed i n Document: #[id number] could not be added to this patient's chart. Please review this document and add these problems to the patient's chart manually as needed. Problem Notes None recorded. Medical Equipment None Reported. Allergies No known drug allergies Medications Name Sig Start Date Stop Date Status Note LastModified by Organization Details LastModified Time hydralazine 10 mg tablet TAKE 1 TABLET BY MOUTH TWICE DAILY active Not Available Not Available No t Available metoprolol succinate ER 50 mg tablet,exte nded release 24 hr TAKE 1 TABLET BY MOUTH ONCE DAILY active Not Available Not Available No t Available Ativan 1 mg tablet One HS for anxiety and sleep 08/05 completed Not Available Not Available Not Available Keflex 500 mg capsule Take 1 capsule 4 times a day by oral route. 11/27 completed Not Available Not Available Not Available lisinopril 20 mg tablet Take 1 tablet every day by oral route. 08/05 completed Not Available Not Available Not Available chlorthalid one 25 mg tablet Take 1 tablet every day by oral route. 08/05 completed Not Available Not Available Not Available amlodipine 5 mg tablet TAKE 1 TABLET BY MOUTH EVERY DAY 06/16 completed Not Available Not Available Not Available Ciloxan 0.3 % eye drops Instill 1 DROP EVERY 2 HOURS while awake 10/27 completed Not Available Not Available Not Available citalopram 20 mg tablet TAKE 1 TABLET BY MOUTH EVERY DAY 08/05 completed Not Available Not Available Not Available amlodipine 10 mg tablet Take 1 tablet every day by oral route. active Not Available Not Available No t Available tobramycin 0.3 % eye drops Instill 1 drop(s) EVERY 4 HOURS by ophthalmi c route. 11/27 completed Not Available Not Available Not Available metoprolol succinate ER 25 mg tablet,exte nded release 24 hr TAKE 1 TABLET BY MOUTH ONCE DAILY 08/06 completed Not Available Not Available Not Available lisinopril 40 mg tablet TAKE 1 TABLET BY MOUTH ONCE DAILY active Not Available Not Available No t Available naproxen 500 mg tablet Take 1 tablet twice a day by oral route. active Not Available Not Available No t Available escitalopra m 10 mg tablet active Not Available Not Available Not Available escitalopra m 20 mg tablet TAKE 1 TABLET BY MOUTH ONCE DAILY FOR 30 DAYS active Not Available Not Available No t Available Os-Alexx 500 + D3 twice a day 08/05 completed Not Available Not Available Not Available Diovan HCT 320 mg-25 mg tablet Take 1 tablet every day by oral route. 2012 active Not Available Not Available Not Avai lable Vitals Date Recorded Body height Body mass index (BMI) Body weight Provider Name and Address Organization Details Last Updated DateTime 08/06/2023 165.1 cm 22.5 kg/m2 48480.97 g Tiana Mccurdys [facility] [employer] [facility] 08/06/2023 16:26:26 Date Recorded Body height Body mass index (BMI) Body weight Provider Name and Address Organization Details Last Updated DateTime 08/27/2023 165.1 cm 26.6 kg/m2 14616.78 g Malia Rubio [facility] 08/27/2023 13:57:38 Date Recorded Body height Body mass index (BMI) Body weight Provider Name and Address Organization Details Last Updated DateTime 10/29/2023 165.1 cm 28.1 kg/m2 13376.11 darlene Davis [facility] [employer] [facility] 10/29/2023 14:22:44 Social History None recorded. Functional Status Question Answer Note LastModified by Organization D etails LastModified Time What is your level of alcohol consumption? None [email or web address] Information not available 08/06/2023 Mental Status None recorded. Family History Relationship Description Onset Age of this Age Resolved Age Notes LastModified by Organization Details LastModified Time Brother Heart disease [email or web address] Not available 2023 16:28:14 Brother Hypertensive disorder [email or web address] Not available 2023 16:28:24 Notes:Mother 76 from co mplications of Hepatitis C Father 77 from complications of carotid stenosis Brothers 5 two with HTN and ASHD. All are living. No sisters Medical History Condition Response HYPERTENSION Y Gynecological HistoryNo gynecological history recorded. Obstetrics History GPAL:G 0 P 0 0 0 0 Past Encounters Encounter ID Performer Location Encounter Start Date Encounter Closed Date Diagnosis/Indication Diagnosis SNOMED-CT Code Diagnosis ICD10 Code Diagnosis Note [id number] Mumtaz Sargent MD [facility] [place] [address] [place] [address] 08/06/2023 15:59:29 08/06/2023 16:44:13 Pain of right shoulder joint 6180361140 9645581 M25.494 [id number] Mumtaz Sargent MD [facility] [place] [address] [place] [address] 08/27/2023 13:54:54 08/27/2023 14:27:43 Pain of right shoulder joint 9566471251 6299326 M25.943 [id number] Mumtaz Sargent MD [facility] [place] [address] [place] [address] 10/29/2023 14:14:54 10/29/2023 14:45:15 Pain of right shoulder joint 4294996397 0256191 M25.511 Health Concerns Section Related Observation LastModified by Organization Detai ls LastModified Time None Recorded Concern Status LastModified by Organization Details LastModified Time None Recorded Advance Directives Directive None Recorded Payers Insurance Date Sequence Insurance Name Policy Number Policy Eagle Covered Member ID Eagle Member ID Guarantor Name 10/29/2023 1 [place] Rakel Pavon [id number] Rakel Servin Pavon 11/04/2023 2 [employer] [place] (MEDICARE SUPPLEMENT) Rakel Hernandezro [id number] Rakel Malathi Pavon 10/29/2023 1 [facility] - MEDICARE COMPLETE PLAN 1 (MEDICARE REPLACEMENT HMO) [id number] Rakel Hernandezro [id number] Rakel Servin Pavon 11/28/2023 1 [employer] (MEDICARE REPLACEMENT/A DVANTAGE - PPO) Rakel Servin Pavon [id number] Rakel Servin Apvon OBGyn Episode No OBEpisode recorded.
--- OUTSIDE RECORDS SUMMARY | 2024-12-22 14:30 | XMS_ITS | Patient Health Record ---
Author Organization [facility] Address [address] [place] [address] Care Team Providers Care Rat Culturist Name Role Phone Migration, Provider Unavailable Unavailable Dedra Banegas Unavailable [phone] Allergies No Known Allergies Reason For Referral No Information Medications Medication SIG (Take, Route, Frequency, Duration) Notes Start Date End Date Status amLODIPine Besylate 10 MG Oral 09/15/2023 Active hydrALAZINE HCl 10 MG Oral 09/15/2023 Active VITAMIN D3 1,250 MCG (50,000 UNIT)-VITAMIN K2 200 MCG CAPSULE *Reorder from [facility] for eRx and Interaction Alerts* 09/15/2023 Active CENTRUM COMPLETE [facility] and Interaction Alert[facility]* 09/15/2023 Active Naproxen 500 MG Oral 09/15/2023 Act kaila Lisinopril 40 MG Oral 09/15/2023 Ac tive Metoprolol Succinate ER 50 MG Oral 09/15/2023 Active Social History Sex Assigned At : Social History Observation Description Sex Assigned At Female Section Notes: Social History Substance Use Do you or have you ever smoked tobacco?: Never smoker How much tobacco do you smoke?: None Do you or have you ever used e-cigarettes or vape?: Never used electronic cigarettes What was the date of your most recent tobacco screening?: 10/21/2022 Has tobacco cessation counseling been provided?: No What is your level of alcohol consumption?: None How many years have you consumed alcohol?: 0 Do you use any illicit or recreational drugs?: No Have you used IV drugs?: No What is your level of caffeine consumption?: None Education and Occupation What is the highest grade or level of school you have completed or the highest degree you have received?: High school graduate Are you currently employed?: No Marriage and Sexuality What is your relationship status?: Are you sexually active?: No How many children do you have?: 3 Home and Environment Are you a caregiver?: No Do you have any pets?: No Do you have smoke and carbon monoxide detectors in your home?: Yes Are you passively exposed to smoke?: No Are there any smokers in your house?: No Are there any guns present in your home?: No Diet and Exercise What type of diet are you following?: Regular What is your exercise level?: Some Lifestyle Do you feel stressed (tense, restless, nervous, or anxious, or unable to sleep at night)?: No Advance Directive Do you have an advance directive?: No Do you have a medical power of collections attorney?: No Activities of Daily Living Are you able to care for yourself?: Yes Are you blind or do you have difficulty seeing?: (Notes: glasses) Are you deaf or do you have serious difficulty hearing? : No Do you have difficulty concentrating, remembering or making decisions?: No Do you have difficulty walking or climbing stairs?: No Do you have difficulty doing errands alone?: No Gender Identity and LGBTQ Identity Gender identity: Identifies as Female Sexual orientation: Straight or heterosexual Social History Substance Use Do you or have you ever smoked tobacco?: Never smoker How much tobacco do you smoke?: None Do you or have you ever used e-cigarettes or vape?: Never used electronic cigarettes What was the date of your most recent tobacco screening?: 10/21/2022 Has tobacco cessation counseling been provided?: No What is your level of alcohol consumption?: None How many years have you consumed alcohol?: 0 Do you use any illicit or recreational drugs?: No Have you used IV drugs?: No What is your level of caffeine consumption?: None Education and Occupation What is the highest grade or level of school you have completed or the highest degree you have received?: High school graduate Are you currently employed?: No Marriage and Sexuality What is your relationship status?: Are you sexually active?: No How many children do you have?: 3 Home and Environment Are you a caregiver?: No Do you have any pets?: No Do you have smoke and carbon monoxide detectors in your home?: Yes Are you passively exposed to smoke?: No Are there any smokers in your house?: No Are there any guns present in your home?: No Diet and Exercise What type of diet are you following?: Regular What is your exercise level?: Some Lifestyle Do you feel stressed (tense, restless, nervous, or anxious, or unable to sleep at night)?: No Advance Directive Do you have an advance directive?: No Do you have a medical power of collections attorney?: No Activities of Daily Living Are you able to care for yourself?: Yes Are you blind or do you have difficulty seeing?: (Notes: glasses) Are you deaf or do you have serious difficulty hearing? : No Do you have difficulty concentrating, remembering or making decisions?: No Do you have difficulty walking or climbing stairs?: No Do you have difficulty doing errands alone?: No Gender Identity and LGBTQ Identity Gender identity: Identifies as Female Sexual orientation: Straight or heterosexual Problems Problem Type SNOMED Code ICD Code Onset Dates Problem Status W/U Status Risk Notes Problem Major depressive disorder, recurrent, in full remission (F33.42) Active confirmed Problem Generalized anxiety disorder (07773030) Generalized anxiety disorder (F41.1) 4 Active confirmed Encounters Encounter Location Date Provider Diagnosis [facility] [employer] [address] [place] [address] [address] 02/16/2024 Dedra Rollinskelsiarcadio Major depressive disorder, recurrent, in full remission F33.42 and Generalized anxiety disorder F41.1 Assessments Encounter Date Diagnosis (ICD Code) Assessment Notes Treatment Notes Treatment Clinical Notes Section Notes 02/16/2024 Major depressive disorder, recurrent, in full remission (ICD-10 - F33.42) tolerated taper off lexapro no current meds discuss monitoring for recurrence and return to office sooner rather than later if sx f/u as needed 02/16/2024 Generalized anxiety disorder (ICD-10 - F41.1) as above Plan Of Treatment No Information Insurance Providers Payer Name Payer Address Payer Phone Subscriber Number Group Number Insured Name Patient Relationship to Insured Coverage Start Date Coverage End Date [place] [address] [place] [phone] [id number] LUCIANA MCCARTY Self - patient is the insured [facility] Insurance Medicare Supplement [address] [address] [place] [address] [id number] LUCIANA MCCARTY Self - patient is the insured Medical (General) History Medical History History ICD Code Problems: Generalized anxiety disorder Major depression in remission Mild recurrent major depression Severe recurrent major depression withou t psychotic features , Surgical History Surgery Date(Month/Year) Procedure on back (139231730 ) spinal surgery x2; 1 disc removed half and then had to go back and remove other half
[2024-12-22 19:20] LABS: Alanine Aminotransferase 33 U/L (6-35); Albumin Level 4.4 g/dL (3.5-5.1); Alkaline Phosphatase 80 U/L (38-126); Anion Gap 9 mmol/L (4-12); Aspartate Amino Transferase 44 U/L (14-36); Bilirubin,Total 0.7 mg/dL (0.2-1.3); Blood Urea Nitrogen 14 mg/dL (7-17); Carbon Dioxide 29 mmol/L (22-30); Chloride 102 mmol/L (98-107); Cholesterol 243 mg/dL (0-200); Estimated Glomerular Filt Rate 46; Glucose 88 mg/dL (65-110); HDL Direct 46 mg/dL; Potassium 4.9 mmol/L (3.4-5.0); Sodium 140 mmol/L (137-145); Total Protein 7.9 g/dL (6.3-8.2); Triglycerides 146 mg/dL (<150)
[2024-12-22 19:31] LABS: LDL Cholesterol Direct 134 mg/dL
== END 2024-12-22 13:04 | disposition home or self-care (01) ==
LOC: ANHGOSHLAB 13:03
PROVIDERS: PCP Family Medicine; Visit Provider Student in an Organized Health Care Education/Training Program
DX: E78.5 Hyperlipidemia, unspecified (principal); I10 Essential (primary) hypertension
CPT/HCPCS: 36415; 80053; 80061